=== PATIENT | female | born 1965 | race African-American/Black ===

== ENCOUNTER 2017-04-21 15:56 | Emergency (ER) | payer MEDICAID, OTHER ==
[~2017-04-21] VITALS: Ht 167.6 cm; Wt 127.0 kg
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
[2017-04-21] MEDS ORDERED: DIAZ5TAB3 PO (17:17)
[2017-04-21] MEDS ORDERED: BUSP10TA95 PO (17:17)
[2017-04-21] MEDS ORDERED: RANI150T90 PO (17:17)
[2017-04-21 17:22] VITALS: BP 159/91
== END 2017-04-21 17:22 | disposition home or self-care (01) ==
LOC: ER 15:59
DX: Z00.8 Encounter for other general examination (principal); F41.9 Anxiety disorder, unspecified; J44.9 Chronic obstructive pulmonary disease, unspecified; E78.00 Pure hypercholesterolemia, unspecified; I10 Essential (primary) hypertension; K21.9 Gastro-esophageal reflux disease without esophagitis; E11.9 Type 2 diabetes mellitus without complications; F32.9 Major depressive disorder, single episode, unspecified; F17.210 Nicotine dependence, cigarettes, uncomplicated
CPT/HCPCS: 99282

== ENCOUNTER 2017-05-01 16:21 | Emergency (ER) | payer MEDICAID ==
[~2017-05-01] VITALS: Ht 167.6 cm; Wt 127.0 kg
[~2017-05-01 16:21] MED LIST: BUSP10TA95 PO; DIAZ5TAB3 PO; RANI150T90 PO
[2017-05-01] MEDS ORDERED: OMEP10CA4 PO (17:41)
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
[2017-05-01] MEDS ORDERED: RT-ALBUTEROL/IPRATROPIUM 3 ML (DUONEB) VIAL INH ONE ×2 (18:30→20:00)
[2017-05-01] MEDS ORDERED: ALBU2.5V4 IH (18:54)
--- NOTE | 2017-05-01 18:54 | Diagnostic Imaging Report ---
INDICATION: Difficulty breathing and productive cough. PA and lateral views were obtained. FINDINGS: There is cardiomegaly. There is some venous congestion. There is no evidence of lobar pneumonia. There is no pleural effusion or pneumothorax. Mediastinum is unremarkable. IMPRESSION: Cardiomegaly and some mild central pulmonary venous congestion. Minimal patchy infiltrate in the right lung base cannot be excluded. Dictated by: Dictated on workstation # [id number]
[2017-05-01] MEDS ORDERED: RX-ALBUTEROL INHALER (PROAIR) 8 GM IH STA (18:55)
[2017-05-01 19:22] LABS: BASOPHILS % (AUTO) 0 % (0-10); EOSINOPHILS # (AUTO) 0.2 10^3/uL (0.0-0.3); EOSINOPHILS % (AUTO) 3 % (0-10); LYMPHOCYTES # (AUTO) 3.4 X 10^3 (1.0-4.0); LYMPHOCYTES % (AUTO) 38 % (12-44); MEAN CORPUSCULAR HEMOGLOBIN 27 PG (25-34); MEAN CORPUSCULAR HGB CONC 32 G/DL (32-36); MEAN CORPUSCULAR VOLUME 85 FL (80-99); MEAN PLATELET VOLUME 10.5 FL (7.4-10.4); MONOCYTES # (AUTO) 0.9 X 10^3 (0.0-1.0); MONOCYTES % (AUTO) 11 % (0-12); NEUTROPHILS # (AUTO) 4.3 X 10^3 (1.8-7.8); NEUTROPHILS % (AUTO) 48 % (42-75); PLATELET COUNT 358 10^3/uL (130-400); RED BLOOD COUNT 4.97 10^6/uL (4.35-5.85); RED CELL DISTRIBUTION WIDTH 14.9 % (10.0-14.5)
[2017-05-01 19:42] LABS: ALBUMIN 3.6 GM/DL (3.2-4.5); BILIRUBIN,TOTAL 0.3 MG/DL (0.1-1.0); CALCIUM 10.4 MG/DL (8.5-10.1); POTASSIUM 3.9 MMOL/L (3.6-5.0); TOTAL PROTEIN 8.1 GM/DL (6.4-8.2); hs C REACTIVE PROTEIN 2.11 MG/DL (0.00-0.50)
[2017-05-01] MEDS ORDERED: AZITHROMYCIN 250 MG TAB (ZITHROMAX) PO ONE (20:15)
[2017-05-01 20:20] LABS: CREATININE SERUM 1.16 MG/DL (0.60-1.30)
[2017-05-01] MEDS ORDERED: AZIT250T12 PO (20:20)
[2017-05-01 20:48] VITALS: BP 123/68
== END 2017-05-01 20:48 | disposition home or self-care (01) ==
LOC: EDUNIT# 16:21 → ER 16:22
DX: J44.1 Chronic obstructive pulmonary disease with (acute) exacerbation (principal); I42.9 Cardiomyopathy, unspecified; E78.00 Pure hypercholesterolemia, unspecified; I10 Essential (primary) hypertension; K21.9 Gastro-esophageal reflux disease without esophagitis; M19.90 Unspecified osteoarthritis, unspecified site; F41.9 Anxiety disorder, unspecified; F32.9 Major depressive disorder, single episode, unspecified; E11.9 Type 2 diabetes mellitus without complications; F17.210 Nicotine dependence, cigarettes, uncomplicated; Z90.721 Acquired absence of ovaries, unilateral; Z85.51 Personal history of malignant neoplasm of bladder; Z87.19 Personal history of other diseases of the digestive system
CPT/HCPCS: 36415; 71020; 80053; 83880; 85025; 86141; 87804; 94640

== ENCOUNTER 2017-06-29 18:03 | Emergency (ER) | payer SELFPAY ==
[~2017-06-29] VITALS: Ht 167.6 cm; Wt 126.6 kg
[~2017-06-29 18:03] MED LIST changes: +ALBU2.5V4 IH; +AZIT250T12 PO; +OMEP10CA4 PO
[2017-06-29] MEDS ORDERED: NITROGLYCERIN 0.4 MG SL TABS BTL 25'S SL PRN (18:15)
[2017-06-29] MEDS ORDERED: ASPIRIN 81 MG CHEW (CHILDREN'S ASA) PO ONE (18:15)
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
[2017-06-29 18:35] LABS: BASOPHILS % (AUTO) 0 % (0-10); EOSINOPHILS # (AUTO) 0.2 10^3/uL (0.0-0.3); EOSINOPHILS % (AUTO) 3 % (0-10); HEMATOCRIT 41 % (35-52); HEMOGLOBIN 13.4 G/DL (11.5-16.0); LYMPHOCYTES # (AUTO) 2.2 X 10^3 (1.0-4.0); LYMPHOCYTES % (AUTO) 30 % (12-44); MEAN CORPUSCULAR HEMOGLOBIN 28 PG (25-34); MEAN CORPUSCULAR HGB CONC 33 G/DL (32-36); MEAN CORPUSCULAR VOLUME 86 FL (80-99); MEAN PLATELET VOLUME 10.3 FL (7.4-10.4); MONOCYTES # (AUTO) 0.7 X 10^3 (0.0-1.0); MONOCYTES % (AUTO) 10 % (0-12); NEUTROPHILS # (AUTO) 4.1 X 10^3 (1.8-7.8); NEUTROPHILS % (AUTO) 57 % (42-75); PLATELET COUNT 332 10^3/uL (130-400); RED BLOOD COUNT 4.75 10^6/uL (4.35-5.85); RED CELL DISTRIBUTION WIDTH 14.5 % (10.0-14.5); WHITE BLOOD COUNT 7.2 10^3/uL (4.3-11.0)
[2017-06-29] MEDS ORDERED: FAMOTIDINE 20 MG (PEPCID) TABLET PO STA (18:37)
[2017-06-29] MEDS ORDERED: NS IV 1000 ML 1,000 ML IV ONE (18:37)
[2017-06-29 18:45] LABS: INR 0.9 (0.8-1.4); PROTHROMBIN TIME PATIENT 12.4 SEC (12.2-14.7)
[2017-06-29] MEDS ORDERED: ONDANSETRON 4 MG/2 ML (SDV) Z0FRAN IVP ONE (18:45)
[2017-06-29] MEDS ORDERED: ANTACID SUSP 30 ML UDC (MYLANTA) PO ONE (18:45)
[2017-06-29] MEDS ORDERED: LIDOCAINE 2% VISCOUS 15 ML UDC PO ONE (18:45)
[2017-06-29 18:53] LABS: ALANINE AMINOTRANSFERASE 15 U/L (0-55); ALBUMIN 3.5 GM/DL (3.2-4.5); ALKALINE PHOSPHATASE 176 U/L (40-136); BILIRUBIN,TOTAL 0.3 MG/DL (0.1-1.0); BUN/CREATININE RATIO 10; CARBON DIOXIDE 24 MMOL/L (21-32); CHLORIDE 99 MMOL/L (98-107); CREATININE SERUM 1.11 MG/DL (0.60-1.30); GFR ESTIMATED > 60; GLUCOSE 251 MG/DL (70-105); MAGNESIUM 1.8 MG/DL (1.8-2.4); POTASSIUM 3.7 MMOL/L (3.6-5.0); SODIUM 136 MMOL/L (135-145); TOTAL PROTEIN 7.7 GM/DL (6.4-8.2)
[2017-06-29 18:59] LABS: MYOGLOBIN SERUM 41.7 NG/ML (10.0-92.0)
--- NOTE | 2017-06-29 19:03 | Diagnostic Imaging Report ---
INDICATION: Chest pain. Portable upright AP view of the chest is obtained at 1840 hrs. Comparison is made study of 05/01/2017. FINDINGS: There is generalized cardiomegaly. There is mild pulmonary venous congestion. Increased density is noted in the central aspect of both lungs. No pneumothorax or significant pleural fluid is identified. IMPRESSION: Cardiomegaly and central pulmonary density which may represent edema. This could represent congestive heart failure and clinical correlation is recommended. Dictated by: Dictated on workstation # [id number]
[2017-06-29] MEDS ORDERED: OMEP40CA36 PO (22:58)
[2017-06-29] MEDS ORDERED: SUCR1TAB36 PO (22:58)
[2017-06-29 23:01] VITALS: BP 115/82
== END 2017-06-29 23:01 | disposition home or self-care (01) ==
LOC: EDUNIT# 18:03 → ER 18:06
DX: R07.9 Chest pain, unspecified (principal); K21.9 Gastro-esophageal reflux disease without esophagitis; I50.9 Heart failure, unspecified; J44.9 Chronic obstructive pulmonary disease, unspecified; I42.9 Cardiomyopathy, unspecified; E11.40 Type 2 diabetes mellitus with diabetic neuropathy, unspecified; E78.00 Pure hypercholesterolemia, unspecified; I10 Essential (primary) hypertension; F41.9 Anxiety disorder, unspecified; F32.9 Major depressive disorder, single episode, unspecified; F17.210 Nicotine dependence, cigarettes, uncomplicated; Z90.721 Acquired absence of ovaries, unilateral; Z87.19 Personal history of other diseases of the digestive system; Z85.51 Personal history of malignant neoplasm of bladder; Z88.8 Allergy status to other drugs, medicaments and biological substances
CPT/HCPCS: 36415; 71045; 80053; 83735; 83874; 83880; 84484; 85025; 85610; 85730; 93041; 96374